=== PATIENT | female | born 1965 | race Caucasian/White ===

== ENCOUNTER 2017-08-10 10:53 | Day surgery (SDC) | payer BC, OTHER ==
[~2017-08-10] VITALS: Ht 167.6 cm; Wt 107.4 kg
[~2017-08-10 10:53] MED LIST: Celexa10 MG PO; DIPH50 PO; Hair, Skin & N1 EACH; LEVO-T100 MCG; MELATONIN10 M2 PO; METF500; OMEP20ER PO
== END 2017-08-10 12:37 | disposition home or self-care (01) ==
LOC: ORSCSDS 10:53
PROVIDERS: Surgery
PROC: 0DBM8ZX Excision of Descending Colon, Via Natural or Artificial Opening Endoscopic, Diagnostic (ICD-10-PCS; principal; 2017-08-10 12:00)
DX: Z12.11 Encounter for screening for malignant neoplasm of colon (principal); D12.4 Benign neoplasm of descending colon; Z83.71 Family history of colonic polyps; E11.9 Type 2 diabetes mellitus without complications; F32.9 Major depressive disorder, single episode, unspecified; E03.9 Hypothyroidism, unspecified; F17.210 Nicotine dependence, cigarettes, uncomplicated; Z79.899 Other long term (current) drug therapy
CPT/HCPCS: 82947; 88305; J7120

== ENCOUNTER → 2023-03-05 | Outpatient (CLI) | payer BC | END | disposition home or self-care (01) | LOC: LAB SHORT 08:40 → LAB 08:40 | DX: E06.3 Autoimmune thyroiditis (principal); E78.5 Hyperlipidemia, unspecified | CPT/HCPCS: 84443 ==